=== PATIENT | male | born 1960 | race Caucasian/White ===

== ENCOUNTER 2017-05-11 00:29 | Emergency (ER) | payer MEDICARE, OTHER ==
[~2017-05-11] VITALS: Ht 190.5 cm; Wt 116.4 kg
[~2017-05-11 00:29] MED LIST: AMLO10TA4 PO; GABA300C10 PO; HYDR-879 PO; LISI-170 PO; TIAZEDINE PO; VENL75CA PO
[2017-05-11] MEDS ORDERED: SODIUM CHLORIDE 0.9% 1,000ML IVBOLUS ONE (01:00)
[2017-05-11] MEDS ORDERED: TRAZ50TA18 PO (01:17)
[2017-05-11] MEDS ORDERED: HYDR50TA3 PO (01:17)
[2017-05-11] MEDS ORDERED: BACL20TA PO (01:18)
[2017-05-11 01:25] LABS: BLOOD UREA NITROGEN 22 mg/dL (7-18)
[2017-05-11 01:26] LABS: ASPARTATE AMINO TRANSFERASE 50 U/L (15-37)
[2017-05-11 01:31] LABS: IS PT STATUS REG ER OR PRE ER? NO
[2017-05-11] MEDS ORDERED: KETOROLAC 30 MG/1 ML ONE (02:24)
[2017-05-11] MEDS ORDERED: KETOROLAC 30 MG/1 ML IVPush ONE (02:30)
[2017-05-11 02:36] VITALS: BP 111/65
== END 2017-05-11 02:39 | disposition home or self-care (01) ==
LOC: ED 02:17
DX: S92.325A Nondisplaced fracture of second metatarsal bone, left foot, initial encounter for closed fracture (principal); E86.0 Dehydration; I10 Essential (primary) hypertension; N17.9 Acute kidney failure, unspecified; F17.200 Nicotine dependence, unspecified, uncomplicated; X58.XXXA Exposure to other specified factors, initial encounter; Y93.89 Activity, other specified; Y99.8 Other external cause status; Y92.89 Other specified places as the place of occurrence of the external cause
CPT/HCPCS: 29515; 36415; 71010; 73630; 80053; 84484; 85025; 93005; 96361; 96374; 99285; J1885; J7030

== ENCOUNTER → 2017-06-29 | Outpatient (CLI) | payer MEDICARE, OTHER ==
[~2017-06-29] MED LIST changes: +BACL20TA PO; +GADOBUTROL 10 MMOL/10 ML PFS ONE; +HYDR50TA3 PO; +OXYC1TAB7 PO; +TRAZ50TA18 PO
== END | disposition home or self-care (01) ==
LOC: CFH 15:21
PROVIDERS: ATTEND Anesthesiology
DX: M47.896 Other spondylosis, lumbar region (principal)
CPT/HCPCS: 72110; 72158; 82565; A9585

== ENCOUNTER 2017-06-30 06:58 | Day surgery (SDC) | payer OTHER ==
[2017-06-29 14:13] LABS: ASPARTATE AMINO TRANSFERASE 41 U/L (15-37); BLOOD UREA NITROGEN 16 mg/dL (7-18)
[~2017-06-30] VITALS: Ht 190.5 cm; Wt 124.0 kg
[~2017-06-30 06:58] MED LIST changes: -GADOBUTROL 10 MMOL/10 ML PFS ONE
[2017-06-30] MEDS ORDERED: LACTATED RINGERS 1,000 ML IV SCH (07:37)
[2017-06-30 07:38] VITALS: BP 184/102
[2017-06-30] MEDS ORDERED: MIDAZOLAM 1 MG/ML, 2ML ONE (07:45)
[2017-06-30] MEDS ORDERED: FENTANYL PF 100 MCG/2ML ONE ×2 (07:45→11:01)
[2017-06-30 08:07] VITALS: BP 164/96
[2017-06-30] MEDS ORDERED: BUPIVACAINE/PF 0.5% ONE ×2 (08:37→08:45)
[2017-06-30] MEDS ORDERED: PROPOFOL 10 MG/ML, 50ML ONE (09:05)
[2017-06-30] MEDS ORDERED: ONDANSETRON 2MG/ML, 2ML ONE (09:05)
[2017-06-30] MEDS ORDERED: CEFAZOLIN 1,000 MG ONE (09:05)
[2017-06-30] MEDS ORDERED: SUCCINYLCHOLINE 20 MG/ML, 10ML ONE (09:05)
[2017-06-30] MEDS ORDERED: DEXAMETHASONE 4 MG/ML, 1ML ONE (09:05)
[2017-06-30] MEDS ORDERED: PROMETHAZINE 25 MG/ML, 1ML IV PRN (10:00)
[2017-06-30] MEDS ORDERED: HYDROmorphone 1 MG/ML, 1ML IV PRN (10:00)
[2017-06-30] MEDS ORDERED: OXYcodone 5 MG/5 ML ORAL.SOL UDC PO PRN (10:00)
[2017-06-30] MEDS ORDERED: METOPROLOL 1 MG/ML, 5ML IV PRN (10:00)
[2017-06-30] MEDS ORDERED: MIDAZOLAM 1 MG/ML, 2ML IV PRN (10:00)
[2017-06-30] MEDS ORDERED: MEPERIDINE/PF 25MG/0.5ML IVPush PRN (10:00)
[2017-06-30] MEDS ORDERED: ALBUTEROL SULFATE 2.5 MG/3 ML NPPB PRN (10:00)
[2017-06-30] MEDS ORDERED: ACETAMINOPHEN 325 MG TABLET PO PRN (10:00)
[2017-06-30] MEDS ORDERED: hydrALAzine 20 MG/ML, 1ML IV PRN (10:00)
[2017-06-30] MEDS ORDERED: ACETAMINOPHEN 650 MG/20.3 ML UDC ONE (11:01)
[2017-06-30] MEDS ORDERED: OXYcodone 5 MG/5 ML ORAL.SOL UDC ONE (11:02)
[2017-06-30] MEDS ORDERED: ACETAMINOPHEN 325 MG TABLET ONE (11:02)
[2017-06-30] MEDS ORDERED: MEPERIDINE/PF 25MG/0.5ML ONE (11:02)
[2017-06-30] MEDS: FENTANYL PF 100 MCG/2ML IV PRN ×2 (11:10→11:18)
[2017-06-30] MEDS ORDERED: hydrALAzine 20 MG/ML, 1ML ONE (11:42)
== END 2017-06-30 15:10 ==
LOC: OUT 06:58
PROVIDERS: ATTEND Orthopaedic Surgery Foot and Ankle Surgery
DX: S92.322A Displaced fracture of second metatarsal bone, left foot, initial encounter for closed fracture (principal); S92.342A Displaced fracture of fourth metatarsal bone, left foot, initial encounter for closed fracture; S93.325A Dislocation of tarsometatarsal joint of left foot, initial encounter; I10 Essential (primary) hypertension; Z87.891 Personal history of nicotine dependence; Z88.5 Allergy status to narcotic agent; X50.1XXA Overexertion from prolonged static or awkward postures, initial encounter; Y93.89 Activity, other specified; Y92.89 Other specified places as the place of occurrence of the external cause; Y99.8 Other external cause status
CPT/HCPCS: 28485; 28615; 36415; 73630; 76001; 80053; J0330; J0360; J0690; J1100; J2175; J2250; J2405; J2704; J3010; J3490; J7120

== ENCOUNTER 2018-06-08 14:59 | Emergency (ER) | payer SELFPAY ==
[~2018-06-08] VITALS: Ht 190.5 cm; Wt 131.8 kg
[2018-06-08 15:20] VITALS: BP 134/92
== END 2018-06-08 15:54 | disposition home or self-care (01) ==
LOC: ED 15:45
DX: K02.9 Dental caries, unspecified (principal); I10 Essential (primary) hypertension; E66.9 Obesity, unspecified; Z89.422 Acquired absence of other left toe(s); Z88.5 Allergy status to narcotic agent
CPT/HCPCS: 99283